=== PATIENT | female | born 1985 | race Caucasian/White ===

== ENCOUNTER 2016-11-21 08:47 | Emergency (ER) | payer BC ==
[~2016-11-21] VITALS: Ht 170.2 cm; Wt 99.8 kg
[~2016-11-21 08:47] MED LIST: ASPI1TAB69 PO; PRENCAP6 PO
--- NOTE | 2016-11-21 12:15 | PD ---
HPI Travel History International Travel<30 Days: No Contact w/Intl Traveler<30Days: No Known Affected Area: No Allergies-Medications (Allergen,Severity, Reaction): Coded Allergies: No Known Allergies (Unverified , 12/08/15) Home Meds Reported Medications Aspirin 81 Mg Tabdr81 Mg PO DAILY 04/29/16 Mv & Min W/Fe Fumarat ( 1) Cap1 Cap PO DAILY 05/10/13 Physical Exam Narrative GENERAL: Well-nourished, well-developed patient. SKIN: Warm and dry. HEAD: Normocephalic and atraumatic. EYES: No scleral icterus. No injection or drainage. ENT: No nasal drainage noted. Mucous membranes pink. Airway patent. NECK: Supple, trachea midline. No JVD. CARDIOVASCULAR: Regular rate and rhythm without murmurs, gallops, or rubs. RESPIRATORY: Breath sounds equal bilaterally. No accessory muscle use. BREASTS: Bilateral exam showed no masses , no retractions, no nipple discharge. ABDOMEN/GI: Abdomen soft, non-tender, bowel sounds present, no rebound, no guarding Gravid to [-] weeks size Fundal Height: [-] GENITOURINARY: External Genitalia: intact and normal in appearance BUS glands: [-] Cervix: [-] Dilatation: [-] Effacement: [-] Station: [-] Presentation: [-] Membranes: [intact or ruptured] Uterine Contractions: [-] FHT's: Category: [-] Baseline: [-] Reactive: [-] Variability: [-] Decels: [-] EXTREMITIES: No cyanosis or edema. BACK: Nontender without obvious deformity. No CVA tenderness. NEUROLOGICAL: Awake and alert. Motor and sensory grossly within normal limits. Five out of 5 muscle strength in all muscle groups. Normal speech. Data Data Orders Us Ob Bpp Wo Nst W Repeat (11/21/16 ) Attending Discharge Order (11/21/16 ) MDM Diagnosis Diagnosis: Primary Impression: Non-stress test reactive Additional Impression: Post-dates Disposition: 01 DISCHARGE HOME Condition: Stable Patient Instructions: General Instructions, Choosing Between Vaginal After or Repeat (GEN), Having Your Baby: The Labor Process ( GEN) Departure Forms: Tests/Procedures Norberto Celaya II, MD Nov 21, 2016 12:15
== END 2016-11-21 13:14 | disposition home or self-care (01) ==
LOC: HOBED 08:47
DX: O48.0 Post-term pregnancy (principal); Z3A.41 41 weeks gestation of pregnancy
CPT/HCPCS: 76816; 76819; 99284

== ENCOUNTER 2016-11-24 10:55 | Inpatient (IN) | payer BC ==
[~2016-11-24] VITALS: Ht 170.2 cm; Wt 102.1 kg
[2016-11-25] VITALS (13 sets, daily range): BP systolic 112–144; BP diastolic 60–78; PULSE 79–102; RESP 10–20; TEMP 97.9–98.3; O2SAT 99–100
[2016-11-25] MEDS ORDERED: LACTATED RINGER'S 1000 ML INJ 1,000 ML IV SCH (13:04)
--- NOTE | 2016-11-25 15:23 | MH ---
cc: TATY CHAVEZ MD DATE OF ADMISSION 11/25/2016 ADMISSION DIAGNOSIS 1. Term at 42 weeks. 2. Previous . HISTORY OF PRESENT ILLNESS A 31-year-old white female para 1-0-2-1, LMP of 02/05/2016, EDC of 11/11/2016. Her preop course was benign, had normal first TM screen, normal panorama and normal ultrasounds. Her first was for failure to progress OP. She had two spontaneous abortions. She is now admitted for repeat section. MEDICATIONS Vitamins. ALLERGIES None. TRANSFUSIONS None. ADDITIONAL SURGERY Right breast biopsy 2009, benign. SOCIAL HISTORY She is . She is a homemaker. Previous respiratory therapist. Alcohol, tobacco and drugs are none. FAMILY HISTORY Her family history is noncontributory. PHYSICAL EXAMINATION GENERAL: On exam this is a well-nourished, well-developed white female. VITAL SIGNS: Stable. HEENT: Exam is normal. CHEST: Chest is clear. HEART: Regular rate. BREASTS: Are symmetrical. ABDOMEN: Gravid. EFW is 4200 grams. PELVIC: Cervix is long, thick and closed. ASSESSMENT As above. She is now admitted for repeat section. While in the office I explained the procedure, the risk, benefits, complications and the patient wished to proceed. Taty Chavez MD JAW/EO /3:10 PM /3:20 PM
[2016-11-25 15:53] LABS: AUTOMATED NEUTROPHIL # 8.3 TH/MM3 (1.8-7.7); BASOPHIL % 0.4 % (0.0-2.0); EOSINOPHIL # 0.1 TH/MM3 (0-0.4); EOSINOPHIL % 0.8 % (0.0-4.0); HEMATOCRIT 31.7 % (35.0-46.0); HEMO FLAGS DIFF FINAL; LYMPH % 16.1 % (9.0-44.0); LYMPHOCYTE # 1.8 TH/MM3 (1.0-4.8); MEAN CELL VOLUME 81.7 FL (80.0-100.0); MEAN CORPUSCULAR HEMOGLOBIN 25.7 PG (27.0-34.0); MEAN CORPUSCULAR HGB CONC 31.4 % (32.0-36.0); MONO % 7.2 % (0.0-8.0); NEUT % 75.5 % (16.0-70.0); PLATELET COUNT 282 TH/MM3 (150-450); RED BLOOD COUNT 3.88 MIL/MM3 (4.00-5.30); RED CELL DISTRIBUTION WIDTH 17.8 % (11.6-17.2)
[2016-11-25 16:24] LABS: BACTERIA, URINE RARE /hpf; BLOOD, URINE NEG (NEG); COMMENT (UR) CULT NOT INDICATED; CULTURE IF INDICATED CULT NOT INDICATED; GLUCOSE,URINE NEG (NEG); KETONE, URINE NEG (NEG); NITRITE,URINE NEG (NEG); PH, URINE 6.5 (5.0-8.5); SQUAMOUS EPITHELIAL CELL URINE 2 /hpf (0-5); URINE COLOR LIGHT-YELLOW (YELLW/STRAW)
[2016-11-25] MEDS ORDERED: LACTATED RINGER'S 1000 ML IV SCH (16:30)
[2016-11-25] MEDS ORDERED: CITRIC ACID-SODIUM CITRATE LIQ 30 ML UDC PO SCH (16:30)
[2016-11-25] MEDS ORDERED: LACTATED RINGER'S 1000 ML IV ONE (16:30)
[2016-11-25] MEDS ORDERED: ceFAZolin 2 GM PREMIX 50 ML IV SCH (16:30)
[2016-11-25] MEDS ORDERED: OXYTOCIN 10 UNIT/ML AMP ONE (17:14)
[2016-11-25] MEDS ORDERED: ACETAMINOPHEN 1000 MG/100 ML VIAL IV ONE (17:14)
[2016-11-25] MEDS ORDERED: MEASLES, MUMPS, RUBELLA VACCINE 0.5 ML VIAL SQ ONE (18:15)
[2016-11-25] MEDS ORDERED: SODIUM CHLORIDE 0.9% FLUSH 5 ML FLUSH IV PRN (18:15)
[2016-11-25] MEDS ORDERED: ZOLPIDEM TARTRATE 5 MG TAB PO PRN (18:15)
[2016-11-25] MEDS ORDERED: oxyCODONE/ACETAMINOPHEN 5 MG/325 MG TAB PO PRN ×2 (18:15)
[2016-11-25] MEDS ORDERED: DOCUSATE SODIUM 50 MG/SENNA 8.6 MG TAB PO PRN (18:15)
[2016-11-25] MEDS ORDERED: SIMETHICONE 80 MG CHEWABLE TAB PO PRN (18:15)
[2016-11-25] MEDS ORDERED: IBUPROFEN 600 MG TAB PO PRN (18:15)
[2016-11-25] MEDS ORDERED: OXYTOCIN 30 UNITS-500ML PREMIX 500 ML IV ONE (18:15)
[2016-11-25] MEDS ORDERED: OXYTOCIN 30 UNITS-500ML PREMIX 500 ML IV PRN (18:15)
[2016-11-25] MEDS ORDERED: KETOROLAC TROMETHAMINE 60 MG/2 ML (IM) VIAL IM PRN (18:15)
[2016-11-25] MEDS ORDERED: ONDANSETRON HCL 4 MG/2 ML VIAL IVP PRN (18:15)
[2016-11-25] MEDS ORDERED: MORPHINE SULFATE PF 5 MG/10 ML VIAL ONE (18:27)
[2016-11-25] MEDS ORDERED: *Lactated Ringer's INJ 1,000 ML IV ONE (18:36)
[2016-11-25] MEDS: ACETAMINOPHEN 1000 MG/100 ML VIAL IV SCH (18:38)
[2016-11-25] MEDS ORDERED: OXYTOCIN 30 UNITS-500ML PREMIX 500 ML ONE (18:45)
[2016-11-25] MEDS ORDERED: SODIUM CHLORIDE 0.9% FLUSH 5 ML FLUSH IV SCH (21:00)
[2016-11-26 01:11] VITALS: BP 117/65; PULSE 84; RESP 18; TEMP 98.3
[2016-11-26] MEDS: ACETAMINOPHEN 1000 MG/100 ML VIAL IV SCH ×3 (02:59→19:17)
[2016-11-26 03:20] VITALS: BP 106/69; PULSE 88; RESP 16; TEMP 98
[2016-11-26 06:24] LABS: BASOPHIL % 0.3 % (0.0-2.0); EOSINOPHIL # 0.1 TH/MM3 (0-0.4); EOSINOPHIL % 0.7 % (0.0-4.0); HEMATOCRIT 28.2 % (35.0-46.0); HEMO FLAGS DIFF FINAL; LYMPHOCYTE # 1.5 TH/MM3 (1.0-4.8); MEAN CORPUSCULAR HEMOGLOBIN 25.4 PG (27.0-34.0); MONO % 9.5 % (0.0-8.0); NEUT % 76.5 % (16.0-70.0); PLATELET COUNT 254 TH/MM3 (150-450); RED BLOOD COUNT 3.44 MIL/MM3 (4.00-5.30); RED CELL DISTRIBUTION WIDTH 17.4 % (11.6-17.2); WHITE BLOOD COUNT 11.7 TH/MM3 (4.0-11.0)
[2016-11-26 06:46] LABS: BICARBONATE 23.9 MEQ/L (21.0-32.0); POTASSIUM 3.8 MEQ/L (3.5-5.1)
[2016-11-26 09:00] VITALS: BP 119/73; PULSE 87; RESP 16; TEMP 98.1
[2016-11-26] MEDS: KETOROLAC TROMETHAMINE 30 MG/ML (IVP) VIAL IV PUSH PRN ×2 (12:05→22:31)
[2016-11-26 14:00] VITALS: BP 112/76; PULSE 82; RESP 16; TEMP 97.9
[2016-11-26 20:00] VITALS: BP 121/82; PULSE 80; RESP 18; TEMP 98.4
[2016-11-27] MEDS: ACETAMINOPHEN 1000 MG/100 ML VIAL IV SCH (03:00)
[2016-11-27] MEDS: KETOROLAC TROMETHAMINE 30 MG/ML (IVP) VIAL IV PUSH PRN ×2 (06:55→13:10)
--- NOTE | 2016-11-27 07:47 | HHI.DCPOC ---
Discharge Care Plan Report Symptoms to Your Doctor -Temperature above 100.5 degrees -Redness, of incision or excessive or foul smelling drainage -Unusual pain or calf pain -Increased vaginal bleeding -Painful or difficulty urinating -Feelings of extreme sadness or anxiety after 2 weeks Goals to Promote Your Health * To prevent worsening of your condition and complications * To maintain your health at the optimal level Directions to Meet Your Goals Take your medications as prescribed Follow your dietary instruction Follow activity as directed Ensure plenty of rest for recovery Drink fluids for hydration Keep your appointments as scheduled Take your immunizations and boosters as scheduled If your symptoms worsen call your PCP, if no PCP go to Urgent Care Center or Emergency Room Smoking is Dangerous to Your Health. Avoid second hand smoke Call the 24-hour crisis hotline for domestic abuse at Jonathan Lira MD Nov 27, 2016 07:47
[2016-11-27] MEDS ORDERED: DIPHTH/TETANUS/ACEL PERTUSSIS (BOOSTER) 0.5 ML VIAL/PFS IM ONE (09:00)
[2016-11-27 09:20] VITALS: BP 127/73; PULSE 74; RESP 18; TEMP 98.5
--- NOTE | 2016-11-28 09:48 | MP ---
cc: TATY LIRA DATE OF SURGERY 11/25/16 PREOPERATIVE DIAGNOSIS 42 weeks, previous . POSTOPERATIVE DIAGNOSIS 42 weeks, previous . Delivered, macrosomia. PROCEDURE Repeat low transverse section. ANESTHESIA Spinal SURGEON Syeda Lira MD DRAFTER ENGINEERING Jorge Dukes ESTIMATED BLOOD LOSS About 600 mL FLUIDS 1400 mL crystalloid. OBJECTIVE FINDINGS Folling induction of adequate spinal anesthesia, the patient was prepped and draped supine on the operating table left lateral tilt position usual sterile fashion with the bladder being drained via Green catheterization. The abdomen was opened through a Pfannenstiel incision using a knife to excise her old scar. The fascia was opened transversely, stripped from the muscles. Rectus muscle split in the midline and the peritoneum opened sharply without incident. The bladder flap taken down sharply, retracted with a Ayanna blade. The lower uterine segment was incised transversely with a knife extended with blunt dissection. meconium stained fluid. The baby was in the LOT position. The vacuum suction was applied to the occiput and used to gently lift the head through the abdominal wound. The mouth was suctioned, cord clamped and cut and the baby passed to the team. A viable vigorous male, Apgars 9 and 9, weight 4505 grams or 9 pounds 15 ounces. Cord blood sent for typing, sent for donation and the uterine cavity cleaned with laps. Uterus was exteriorized and closed with two layers of running suture, first with running locking stitch of 0 Vicryl, second with running imbricating stitch of 0 Vicryl. Posterior inspection was normal. Tubes and ovaries were normal. Uterus was now placed in the cavity. Irrigation was performed, no bleeding was evident and the bladder flap was closed with running stitch of 0 Vicryl. All instruments were removed. Counts were correct. The anterior peritoneum closed with running stitch of 2-0 Vicryl. Fascia closed with running locking stitch of 0 Vicryl corner to midline and tied, subcu with running 3-0 Vicryl and skin with subcuticular 3-0 Monocryl. Dermabond applied. All counts correct and the patient was awaken and taken to recovery room in good position. MD SHINE Funez/ /6:24 PM /9:42 AM
--- NOTE | 2016-11-30 10:18 | MD ---
cc: TATY CHAVEZ ADMISSION DATE: 11/25/2016 DISCHARGE DATE: 11/27/2016 ADMISSION DIAGNOSIS 1. 42 weeks. 2. Previous . 3. macrosomia. DISCHARGE DIAGNOSIS 1. 42 weeks. 2. Previous . 3. macrosomia. 4. Delivered. PROCEDURE Repeat low transverse section on 11/25/2016. HISTORY OF PRESENT ILLNESS/HOSPITAL COURSE A 31-year-old white female, para 1-0-2-1 with EDC of 11/18/2016 by dates and ultrasound. Her preop course was benign. She desired but became postdates with large infant and was admitted for repeat section on 11/25/2016. Had delivery of a viable vigorous male, Apgars were 9 and 9. weight was 9 pounds, 15 ounces. did well, discharged home in good condition on 11/27/2016. Her pre and postop labs were normal. She was advised NPV, light activity, no driving ___ one week. She was carefully instructed on wound instructions and care. She is to take her vitamins daily and was given a prescription for Lortab 7.5/325; 15 mL p.o. q.4 hours p.r.n. pain ____. MD SHINE Funez/TLL /7:55 AM /10:03 AM
== END 2016-11-27 15:41 | disposition home or self-care (01) | DRG 766 ==
LOC: H2EB 11-25 14:54 → H1EA 11-25 20:14
PROVIDERS: ADMIT Obstetrics & Gynecology; ATTEND Obstetrics & Gynecology
PROC: 10D00Z1 Extraction of Products of Conception, Low, Open Approach (ICD-10-PCS; principal; 2016-11-25)
PROC: 0HB7XZZ Excision of Abdomen Skin, External Approach (ICD-10-PCS; 2016-11-25)
DX: O34.219 Maternal care for unspecified type scar from previous cesarean delivery (principal); O36.63X0 Maternal care for excessive fetal growth, third trimester, not applicable or unspecified; O48.0 Post-term pregnancy; O77.0 Labor and delivery complicated by meconium in amniotic fluid; Z37.0 Single live birth; Z3A.42 42 weeks gestation of pregnancy
CPT/HCPCS: 59025; 80048; 81001; 85025; 86850; 86900; 86901; J0131; J0690; J1885; J2274; J2590; J7120

== ENCOUNTER 2018-03-06 07:46 | Inpatient (IN) ==
[2018-03-06] MEDS ORDERED: LORazepam 1 MG Tablet PO PRN (09:00)
[2018-03-06] MEDS ORDERED: Citric Acid/Sodium Citrate Liq 30 ML UDC PO SCH ×2 (09:00→21:30)
[2018-03-06] MEDS ORDERED: Diphenoxylate/Atropine 2.5/0.025 MG Tablet PO PRN (09:00)
[2018-03-06] MEDS ORDERED: Morphine Sulfate Inj 8 MG/ML Vial IV.PUSH PRN (09:00)
[2018-03-06] MEDS ORDERED: miSOPROStol 200 MCG Tablet VAGINAL SCH (09:30)
[2018-03-06 09:54] LABS: Baso # (Auto) 0.1 th/mm3 (0.0-0.2); Baso % (Auto) 0.6 % (0.0-2.0); Eos # (Auto) 0.1 th/mm3 (0.0-0.4); Eos % (Auto) 0.8 % (0.0-4.0); Hematocrit 37.2 % (35.0-46.0); Hemoglobin 12.3 gm/dL (11.6-15.3); Lymph # (Auto) 1.6 th/mm3 (1.0-4.8); Lymph % (Auto) 13.3 % (9.0-44.0); Mean Corpuscular Hemoglobin 29.8 pg (27.0-34.0); Mean Corpuscular Volume 90.3 fL (80.0-100.0); Mean Platelet Volume 9.5 fL (7.0-11.0); Mono # (Auto) 0.8 th/mm3 (0.0-0.9); Mono % (Auto) 6.8 % (0.0-8.0); Neut # (Auto) 9.4 th/mm3 (1.8-7.7); Neut % (Auto) 78.5 % (16.0-70.0); Platelet Count 277 th/mm3 (150-450); Red Blood Count 4.12 mil/mm3 (4.00-5.30); Red Cell Distribution Width 14.3 % (11.6-17.2)
--- NOTE | 2018-03-06 11:36 | MH ---
cc: Jonathan Lira MD DATE OF ADMISSION: 03/06/2018 ADMITTING DIAGNOSIS: demise at 21.2 weeks. HISTORY OF PRESENT ILLNESS: The patient is a 32-year-old white female, para 2-0-2-2, with known LMP, EDC of 06/23/2018 by early ultrasound. Her p.o. course has been benign. She had called today with complaint of no movement for 2 days. She came in for ultrasound at 2 p.m., which showed a demise measuring 21 weeks. OPHELIA was 6.2, transverse position, no heart tones. No movement. She is now admitted for delivery. PAST SURGICAL HISTORY: She has in 2012 and 2016. She has spontaneous in 2016 required D and C at 11 weeks, spontaneous earlier that year 2015 at 3-4 weeks, no D and C. Additional surgeries, had a right breast biopsy in 2009. MEDICATIONS: Vitamins, baby aspirin. ALLERGIES: NONE. TRANSFUSIONS: None. SOCIAL HISTORY: , homemaker, previous respiratory therapist. Alcohol, tobacco and drugs are none. FAMILY HISTORY: Noncontributory. PHYSICAL EXAMINATION: GENERAL: This is a well-nourished, well-developed white female. VITAL SIGNS: Stable. HEENT: Normal. CHEST: Clear. HEART: Rate regular symmetrical. ABDOMEN: Gravid. EFW is 432 grams. PELVIC: Cervix closed. EXTREMITIES: Normal. ASSESSMENT: She is now admitted for Cytotec induction. The risks and benefits and complications including infection, injury, bleeding, possible need for hysterotomy, possible need for D and C explained and accepted. MD SHINE Funez/adal , 07:36 PM , 07:42 PM
[2018-03-06 11:49] LABS: Amphetamine Screen,Urine Neg (Neg); Barbiturate Screen,Urine Neg (Neg); Cannabinoid Screen,Urine Neg (Neg); Cocaine Screen,Urine Neg (Neg)
[2018-03-06 11:50] LABS: Opiate Screen,Urine Neg (Neg)
[2018-03-06] MEDS: miSOPROStol 200 MCG Tablet VAGINAL SCH ×2 (14:59→18:45)
[2018-03-06] MEDS ORDERED: Diphtheria/Tetanus/Pertussis Vaccine Inj 0.5 ML Syringe IM ONE (16:00)
[2018-03-06] MEDS ORDERED: Measles/Mumps/Rubella Vaccine Inj 0.5 ML Vial SQ ONE (16:00)
--- NOTE | 2018-03-06 17:43 | MH ---
cc: Jonathan Lira MD DATE OF ADMISSION: 03/06/2018 SUBJECTIVE: The patient is feeling more cramping. OBJECTIVE: Vital signs are stable. Temperature 99. The abdomen is gravid, nontender at 21 weeks. ASSESSMENT: demise at 21 weeks. PLAN: Continue Cytotec induction. Discussed the potential delivery scenarios, analgesia options and the demise. Jonathan Lira MD JAW/ct , 05:22 PM , 05:27 PM
[2018-03-06] MEDS: Morphine Inj 4 MG/ML Vial IV.PUSH PRN ×2 (18:44→18:55)
[2018-03-06] MEDS ORDERED: fentaNYL 2MCG-Bupiv 0.125% Epi 150 ML EPIDURAL ONE (19:27)
[2018-03-06] MEDS ORDERED: Lidocaine 2%/Epinephrine 1:200,000 PF 10 ML SDV ONE (19:52)
[2018-03-06] MEDS ORDERED: fentaNYL 2MCG-Bupiv 0.125% Epi 150 ML EPIDURAL PRN (20:51)
[2018-03-06] MEDS ORDERED: fentaNYL Citrate Inj 100 MCG/2 ML Ampul EPIDURAL ONE (20:51)
[2018-03-06] MEDS ORDERED: Oxytocin 30 Units/500ml Premix 30 UNITS/500 ML BAG IV.SIG ONE (21:28)
[2018-03-06] MEDS ORDERED: Sodium Chlor 0.9% Inj 500 ML IV.SIG PRN (21:28)
[2018-03-06] MEDS ORDERED: Sod Chloride 0.9% Inj 1,000 ML IV.CONT PRN (21:28)
[2018-03-06] MEDS ORDERED: Ampicillin/Sulbactam Inj 1,500 MG IV.SIG SCH ×2 (22:00)
[2018-03-06] MEDS ORDERED: Benzocaine 20% Top Spray 60 ML Can TOPICAL PRN (22:29)
[2018-03-06] MEDS ORDERED: Oxytocin 30 Units/500ml Premix 30 UNITS/500 ML BAG IV.CONT PRN (22:29)
[2018-03-06] MEDS ORDERED: Witch Hazel 50%/Glyderin 12.5% 40 Pad Jar RECTAL PRN (22:29)
[2018-03-06] MEDS ORDERED: Naloxone Inj 0.4 MG/ML Vial IV.PUSH PRN (22:29)
[2018-03-06] MEDS ORDERED: Acetaminophen 325 MG Tablet PO PRN (22:29)
[2018-03-06] MEDS ORDERED: Bisacodyl 10 MG Supp RECTAL PRN (22:29)
[2018-03-06] MEDS ORDERED: Zolpidem Tartrate 5 MG Tablet PO PRN (22:29)
--- NOTE | 2018-03-06 23:46 | MP ---
cc: Jonathan Lira MD DATE OF OPERATION: This is a 32-year-old , white female, para 2-0-2-2, diagnosed with demise yesterday at 21-22 weeks, admitted for Cytotec induction. She progressed to a spontaneous vaginal delivery of the intact sac, a female stillborn, with nuchal cord x 2 with a tight compression and consistent with a cord accident. The placenta delivered intact. The bleeding total was less than 100 mL. The patient and have been able to view the baby. MD SHINE Funez/lc/do , 10:34 PM , 10:42 PM
[2018-03-07] MEDS ORDERED: Senna/Docusate Sodium 8.6/50 MG Tablet PO SCH (09:00)
[2018-03-07 09:07] LABS: Hematocrit 37.6 % (35.0-46.0); Hemoglobin 12.4 gm/dL (11.6-15.3); Mean Corpuscular HGB Conc 32.9 % (32.0-36.0); Mean Corpuscular Hemoglobin 29.6 pg (27.0-34.0); Mean Platelet Volume 8.6 fL (7.0-11.0); Platelet Count 262 th/mm3 (150-450); Red Blood Count 4.18 mil/mm3 (4.00-5.30); Red Cell Distribution Width 14.2 % (11.6-17.2); White Blood Count 11.9 th/mm3 (4.0-11.0)
--- NOTE | 2018-03-07 11:40 | MD ---
cc: Jonathan Lira MD DATE OF DISCHARGE: 03/07/2018 ADMITTING DIAGNOSIS: , 21-22 weeks, with demise. DISCHARGE DIAGNOSIS: , 21-22 weeks, with demise, delivered. HISTORY OF PRESENT ILLNESS: The patient is a 32-year-old white female, para 2-0-2-2, with an unknown LMP. EDC was 06/23/2018, by early ultrasound. Course was benign. She had called on 03/05/2018, reporting no movement for 2 days. Ultrasound performed and confirmed a demise, measuring 21-22 weeks. She was counseled regarding the loss. She was admitted for Cytotec induction of labor. On the morning of 03/06/2018, she developed active labor, received epidural anesthesia, and delivered a stillborn female over intact perineum spontaneously on the evening of 03/06/2018, and the placenta shortly thereafter. There was a nuchal cord x2 and some cord twisting, compatible with cord accident. Placenta was sent to pathology and for chromosome studies. She had a temperature prior to delivery and was given 1 dose of Unasyn . Temperature was normal. Discharged home in excellent condition on the morning of 03/07/2018. She is advised NPV, light activity, and counseled regarding the loss. She is to call for abnormal pain, bleeding, temperature, signs of infection, depression, or breast infection. She will return to see me in 2 weeks. Jonathan Lira MD JAW/bs , 08:47 AM , 08:54 AM
== END 2018-03-07 10:04 | disposition home or self-care (01) ==
LOC: H2E 07:46
PROVIDERS: ADMIT Obstetrics & Gynecology; ATTEND Obstetrics & Gynecology